=== PATIENT | female | born 1980 ===

== ENCOUNTER 2017-02-23 10:06 | Emergency (ER) | payer OTHER ==
[2017-02-23 10:16] VITALS: TEMP 98.2
[2017-02-23] MEDS ORDERED: Lidocaine 1% Inj (20ml) INFIL STA (10:57)
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
[2017-02-23] MEDS ORDERED: Lidocaine 1% Inj (20ml) ONE (10:59)
[2017-02-23] MEDS ORDERED: Bacitracin 500 Units/gm Oint Foilpak UD ONE (11:19)
[2017-02-23] MEDS ORDERED: Bacitracin 500 Units/gm Oint Foilpak UD TOP ONE (11:19)
[2017-02-23 11:24] VITALS: BP 133/80; PULSE 80; RESP 17
[2017-02-23 11:48] VITALS: O2SAT 99
== END 2017-02-23 11:39 | disposition home or self-care (01) ==
LOC: C.ER 10:06
DX: S61.411A Laceration without foreign body of right hand, initial encounter (principal); W22.8XXA Striking against or struck by other objects, initial encounter; Y93.E1 Activity, personal bathing and showering

== ENCOUNTER 2018-03-31 22:44 | Emergency (ER) | payer OTHER ==
[2018-03-31 22:54] VITALS: O2SAT 100
[2018-03-31] MEDS ORDERED: Oxycodone/Acetaminophen 5/325 mg Tab PO STA (23:09)
[2018-03-31] MEDS ORDERED: Oxycodone/Acetaminophen 5/325 mg Tab ONE (23:12)
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
[2018-04-01 02:41] VITALS: BP 117/75; PULSE 71; RESP 16; TEMP 97.7
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
== END 2018-04-01 02:40 | disposition home or self-care (01) ==
LOC: C.ER 22:44
DX: S16.1XXA Strain of muscle, fascia and tendon at neck level, initial encounter (principal); S29.012A Strain of muscle and tendon of back wall of thorax, initial encounter; V89.2XXA Person injured in unspecified motor-vehicle accident, traffic, initial encounter

== ENCOUNTER 2018-04-12 19:30 | Emergency (ER) | payer OTHER ==
[2018-04-12 19:44] VITALS: BP 133/88; PULSE 86; RESP 20; TEMP 98; O2SAT 100
[2018-04-12] MEDS ORDERED: Lidocaine 5% Patch TD STA (20:29)
[2018-04-12] MEDS ORDERED: Lidocaine 5% Patch TD ONE (20:36)
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
== END 2018-04-12 21:19 | disposition home or self-care (01) ==
LOC: C.ER 19:30
DX: M54.6 Pain in thoracic spine (principal)
CPT/HCPCS: 96372; 99283; J1885